=== PATIENT | female | born 1965 | race African-American/Black ===

== ENCOUNTER 2023-10-20 20:01 | Inpatient (IN) | payer OTHER ==
[2023-10-20 20:09] VITALS: BMI 34.7
[2023-10-20] MEDS ORDERED: ACETAMINOPHEN INJECTION 100 ML IVPB ONE (21:00)
[2023-10-20] MEDS ORDERED: FAMOTIDINE 20 MG/50 ML IVPB 20 MG/50 ML MG IVPB ONE (21:01)
[2023-10-20] MEDS ORDERED: ONDANSETRON 4 MG/2 ML VIAL ONE (21:01)
[2023-10-20 21:09] LABS: PH,URINE 5.5 (5.0-8.0); URINE APPEARANCE CLEAR; URINE BILIRUBIN NEGATIVE (NEGATIVE); URINE COLOR YELLOW; URINE GLUCOSE (UA) NEGATIVE (NEGATIVE); URINE KETONE TRACE (NEGATIVE); URINE LEUK ESTERASE NEGATIVE (NEGATIVE); URINE NITRITE NEGATIVE (NEGATIVE); URINE PROTEIN NEGATIVE (NEGATIVE); URINE UROBILINOGEN 0.2 mg/dL (0.2-1.0)
[2023-10-20] MEDS: FAMOTIDINE 20 MG/50 ML IVPB 20 MG/50 ML MG IVPB ONE (21:29)
[2023-10-20] MEDS: SODIUM CHLORIDE 1,000 ML IV STA (21:29)
[2023-10-20] MEDS: ONDANSETRON 4 MG/2 ML VIAL IVPUSH ONE (21:29)
[2023-10-20] MEDS: ACETAMINOPHEN 1000 MG/100 ML BAG IVPB ONE (21:29)
[2023-10-20 21:40] LABS: BASO % 0.3 % (0-2.0); EOS % 2.3 % (0-4.5); HEMATOCRIT 39.4 % (32.4-45.2); HEMOGLOBIN 13.2 GM/dL (10.7-15.3); LYMPH % 27.6 % (8-40); MCH 28.6 pg (25.7-33.7); MCHC 33.6 g/dl (32.0-36.0); MEAN PLT VOLUME 7.6 fl (7.5-11.1); NEUT % 65.8 % (42.8-82.8); PLATELET COUNT 343 10^3/uL (134-434); RBC 4.63 M/mm3 (3.60-5.2); WHITE BLOOD COUNT 9.7 K/mm3 (4.0-10.0)
[2023-10-20 21:48] LABS: INR 0.96 (0.83-1.09)
[2023-10-20 22:01] LABS: BLOOD UREA NITROGEN 20.7 mg/dL (7-18); CALCIUM 9.3 mg/dL (8.5-10.1)
[2023-10-20 22:04] LABS: CREATININE 1.3 mg/dL (0.55-1.3)
[2023-10-20 22:06] LABS: BILIRUBIN,TOTAL 0.3 mg/dL (0.2-1); TOT PROT 7.3 g/dl (6.4-8.2)
[2023-10-21] MEDS: morphine CARPU-JECT 2 MG/1 ML DISP.SYRIN IVPUSH ONE (01:33)
[2023-10-21] MEDS ORDERED: ONDANSETRON 4 MG/2 ML VIAL IVPUSH PRN ×2 (02:00→03:11)
[2023-10-21] MEDS ORDERED: ACETAMINOPHEN 325 MG TABLET (FP) PO PRN (03:31)
[2023-10-21] MEDS: LACTATED RINGERS SOLUTION 1,000 ML/1,000 ML INFUS.BAG IV SCH (03:39)
[2023-10-21 06:35] LABS: HEMATOCRIT 36.7 % (32.4-45.2); HEMOGLOBIN 12.2 GM/dL (10.7-15.3); MCH 28.7 pg (25.7-33.7); MCHC 33.3 g/dl (32.0-36.0); MEAN CELL VOLUME 86.2 fl (80-96); MEAN PLT VOLUME 7.9 fl (7.5-11.1); PLATELET COUNT 303 10^3/uL (134-434); RBC 4.26 M/mm3 (3.60-5.2); WHITE BLOOD COUNT 7.7 K/mm3 (4.0-10.0)
[2023-10-21 06:51] LABS: CHLORIDE 109 mmol/L (98-107); SODIUM 140 mmol/L (136-145)
[2023-10-21] MEDS ORDERED: CYCLOBENZAPRINE HCL 10 MG TABLET (FP) ONE (06:51)
[2023-10-21] MEDS ORDERED: traMADol HCL 50 MG TABLET ONE (06:51)
[2023-10-21 06:53] LABS: ANION GAP 4 mmol/L (4-13); BLOOD UREA NITROGEN 16.4 mg/dL (7-18); CALCIUM 9.2 mg/dL (8.5-10.1); CO2 27 mmol/L (21-32); GLUCOSE,RANDOM 124 mg/dL (74-106); MAGNESIUM 2.4 mg/dL (1.8-2.4)
[2023-10-21] MEDS: traMADol HCL 50 MG TABLET PO PRN (06:53)
[2023-10-21] MEDS: CYCLOBENZAPRINE HCL 10 MG TABLET (FP) PO PRN (06:53)
[2023-10-21 06:56] LABS: CREATININE 1.1 mg/dL (0.55-1.3)
[2023-10-21 06:57] LABS: PHOSPHOROUS 3.8 mg/dL (2.5-4.9)
[2023-10-21 07:49] LABS: HIV INTERPRETATION NEGATIVE (NEGATIVE)
[2023-10-21 08:36] VITALS: BP 135/67; PULSE 82; RESP 18; TEMP 97.5
[2023-10-21 08:54] LABS: METHADONE, UR NEGATIVE (NEGATIVE); PHENCYCLIDINE,URINE NEGATIVE (NEGATIVE); URINE BARBITURATES NEGATIVE (NEGATIVE); URINE BENZODIAZEPINES NEGATIVE (NEGATIVE)
[2023-10-21 08:55] LABS: URINE AMPHETAMINES NEGATIVE (NEGATIVE)
[2023-10-21 09:01] LABS: COCAINE, UR POSITIVE (NEGATIVE); OPIATES, URI POSITIVE (NEGATIVE)
[2023-10-21 09:24] LABS: ERYTHROCYTE SEDIMENTATION RATE 13 mm/hr (0-30)
[2023-10-21] MEDS ORDERED: ENOXAPARIN NA (PORCINE) 40 MG/0.4 ML DISP.SYRIN SQ SCH (10:00)
[2023-10-21] MEDS ORDERED: NICOTINE 21 MG/24 HOURS TOPICAL PATCH TD SCH (10:00)
== END 2023-10-21 09:20 | disposition home or self-care (01) | DRG 556 ==
LOC: JER 20:01 → JERBED 10-21 01:55 → OBSVTOIN 10-21 03:02
PROVIDERS: ADMIT Internal Medicine
DX: M79.7 Fibromyalgia (principal); M54.50 Low back pain, unspecified; I10 Essential (primary) hypertension; R11.2 Nausea with vomiting, unspecified; E78.5 Hyperlipidemia, unspecified; F17.210 Nicotine dependence, cigarettes, uncomplicated; F12.90 Cannabis use, unspecified, uncomplicated; F41.8 Other specified anxiety disorders; K59.00 Constipation, unspecified
CPT/HCPCS: 36415; 74177-TC; 80048; 80053; 80307; 81003; 83690; 83735; 84100; 85025; 85027; 85610; 85651; 85730; 86140; 87086; 87389; 93005; 93010; 99285-25; G0378; J0131; Q9967